=== PATIENT | female | born 1995 | race Caucasian/White ===

== ENCOUNTER 2019-06-15 15:25 | Emergency (ER) | payer SELFPAY ==
[~2019-06-15] VITALS: Ht 165.1 cm; Wt 57.7 kg
[~2019-06-15 15:25] MED LIST: IBUP-727
[2019-06-15 15:27] VITALS: BP 136/81; PULSE 102; RESP 16; Ht 165.1 cm; Wt 57.7 kg
== END 2019-06-16 01:47 | disposition left against medical advice (07) ==
LOC: FTE 15:25
DX: Z53.21 Procedure and treatment not carried out due to patient leaving prior to being seen by health care provider (principal)